=== PATIENT | male | born 1990 | race Caucasian/White ===

== ENCOUNTER 2021-10-06 04:04 | Emergency (ER) | payer MEDICAID, OTHER ==
[2021-10-06] MEDS ORDERED: PENI500T2 PO (05:53)
[2021-10-06] MEDS ORDERED: PRED15SO26 PO (05:53)
[2021-10-06] MEDS ORDERED: IBUP800T26 PO (05:53)
== END 2021-10-06 06:11 | disposition home or self-care (01) ==
LOC: ER 04:04
DX: J02.9 Acute pharyngitis, unspecified (principal)

== ENCOUNTER 2022-01-10 01:56 | Emergency (ER) | payer MEDICAID ==
[~2022-01-10] VITALS: Ht 175.3 cm; Wt 79.8 kg
[~2022-01-10 01:56] MED LIST: IBUP800T26 PO; PENI500T2 PO; PRED15SO26 PO
[2022-01-10 02:36] VITALS: BP 160/96
== END 2022-01-10 05:09 | disposition left against medical advice (07) ==
LOC: ER 01:56
DX: K62.89 Other specified diseases of anus and rectum (principal); Z53.21 Procedure and treatment not carried out due to patient leaving prior to being seen by health care provider